=== PATIENT | female | born 1990 ===

== ENCOUNTER 2020-12-13 18:06 | Emergency (ER) | payer SELFPAY ==
[~2020-12-13] VITALS: Ht 157.5 cm; Wt 62.7 kg
[2020-12-13 18:26] VITALS: BP 138/90
--- NOTE | 2020-12-13 18:30 | NUR ---
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 WILL ONLY TALK TO FAMILY MEMBER. SPEAKING IN FULL SENTENCES W/O DIFFICULTY. PT AGITATED WHEN ASKED TO WAIT IN LOBBY, FLIPPING THIS RN OFF WHILE AMBULATING OUT OF TRIAGE ROOM. STEADY GAIT.
--- NOTE | 2020-12-13 18:35 | NUR ---
ALBINAX1
--- NOTE | 2020-12-13 18:46 | NUR ---
called for pt. pt not in lobby
--- NOTE | 2020-12-13 18:55 | NUR ---
PER SECURITY, PT WALKED OUT OF ED IMMEDIATELY AFTER TRIAGE.
== END 2020-12-13 18:59 | disposition left against medical advice (07) ==
LOC: ED 18:10
DX: K08.89 Other specified disorders of teeth and supporting structures (principal); Z53.21 Procedure and treatment not carried out due to patient leaving prior to being seen by health care provider